=== PATIENT | male | born 1985 | race Caucasian/White ===

== ENCOUNTER 2018-02-27 20:36 | Emergency (ER) | payer SELFPAY ==
[~2018-02-27] VITALS: Ht 175.3 cm; Wt 91.0 kg
[2018-02-28] MEDS ORDERED: ACETAMINOPHEN 325MG TABLET PO ONE (07:00)
[2018-02-28] MEDS ORDERED: KETOROLAC 60MG/2ML VIAL IM ONE (09:00)
[2018-02-28 09:50] VITALS: BP 128/72
== END 2018-02-28 09:50 | disposition home or self-care (01) ==
LOC: ER 20:36
DX: S50.11XA Contusion of right forearm, initial encounter (principal); S93.401A Sprain of unspecified ligament of right ankle, initial encounter; S43.491A Other sprain of right shoulder joint, initial encounter; V03.00XA Pedestrian on foot injured in collision with car, pick-up truck or van in nontraffic accident, initial encounter; Y93.9 Activity, unspecified; Y92.488 Other paved roadways as the place of occurrence of the external cause; Y99.9 Unspecified external cause status
CPT/HCPCS: 73030; 73090; 73610; 96372; 99284; J1885; Z7610